=== PATIENT | female | born 1965 | race African-American/Black ===

== ENCOUNTER → 2017-02-16 | Outpatient (CLI) | payer OTHER ==
[~2017-02-16] MED LIST: LINZESS145 MCG PO; OMEPRAZOLE10 MG PO
--- NOTE | ~2017-02-16 | MR17 ---
[facility] A Service of [facility] / [facility] RADIOLOGY TEXT RESULTS PATIENT: AARON ARGUETA LOCATION: [facility] : 65 UNIT #: [id number] AGE: [address]: GÉNESIS GONZALEZ MD SEX: F ORDER DR: [id number] [place] [id number] O MR#: [id number] Acc #: [id number] NAME: AARON ARGUETA. : 1965 SEX: F STUDY DATE/TIME: 02/16/2017 11:02 UNIT: [facility] ROOM: STUDY DESCRIPTION: MR Brain WWo Contrast Attending Physician: Génesis Gonzalez M.D. Referring Physician: Génesis Gonzalez M.D. Ordering Physician: Génesis Gonzalez M.D. Primary Care Physician: Lalo Haskins M.D. MRI CENTER REPORT This report is preliminary unless electronic signature is present. EXAM Brain MR with and without contrast date of study is 02/16/2017 PROCEDURE Routine brain MR with and without contrast. COMPARISON Head CT 09/19/2015 CLINICAL HISTORY Left Daniels palsy and left ear pain symptoms for 3-4 weeks without improvement. FINDINGS WHOLE BRAIN IMAGES: The brain is structurally normal and brain parenchymal signal is normal. The extracranial soft tissues are unremarkable and bone marrow signal is normal. Normal flow voids are seen in the cerebral vessels. Dedicated thin-section images are also performed through the IACs and posterior fossa and temporal bones. No mass or abnormal signal or enhancement is seen in either labyrinth, IAC, CP angle cistern or in the brainstem. Postcontrast whole brain images are normal as well. IMPRESSION Normal brain and IAC MRI with and without contrast. Dictated by... Julio Cesar Peñaloza M.D. THIS IS AN ELECTRONICALLY VERIFIED REPORT Julio Cesar Peñaloza M.D. at 02/20/2017 9:25 AM [facility] A Service [facility] RADIOLOGY TEXT RESULTS PATIENT: AARON ARGUETA LOCATION: [facility] : 65 UNIT #: [id number] AGE: [address]: GÉNESIS GONZALEZ MD SEX: F ORDER DR: ALIA/estella TD: 02/18/2017 04:44 JOB #: [id number] MRI CENTER REPORT Page 1 of 1
== END | disposition home or self-care (01) ==
LOC: SMRI 10:23
DX: G51.0 Bell's palsy (principal); B02.21 Postherpetic geniculate ganglionitis
CPT/HCPCS: 70553; A9581